=== PATIENT | female | born 1950 | race Caucasian/White ===

== ENCOUNTER 2021-01-02 07:45 | Day surgery (SDC) | payer MEDICARE ==
[2021-01-02 08:07] LABS: #Basophils 0.1 thou/uL (0.0-0.2); #Eosinphils 0.2 thou/uL (0.0-0.7); #Monocytes 0.4 thou/uL (0.11-0.59); #Neutrophils 3.1 thou/uL (1.40-6.50); %Eosinophils 4.1 % (0.0-10.0); %Monocytes 7.7 % (0.0-10.0); %Neutrophils 53.3 % (42.0-75.0); Hemoglobin 13.3 g/dL (12.0-16.0); Mean Corpuscular HGB CONC 33.9 g/dL (32.0-36.0); Mean Corpuscular Hemoglobin 30.1 pg (27.0-31.0); Mean Corpuscular Volume 88.8 fL (78.0-98.0); Mean Platelet Volume 7.7 fL (7.4-10.4); Platelet Count 293 thou/uL (130-400); RBC Distribution Width 12.5 % (11.5-14.5); Red Blood Cell (RBC) Count 4.43 mill/uL (4.20-5.40); White Blood Cell (WBC) Count 5.7 thou/uL (4.8-10.8)
[2021-01-02 08:19] LABS: Prothrombin Time 13.5 sec (12.0-14.7)
[2021-01-02 08:20] LABS: PTT 30.2 sec (22.9-36.1)
[2021-01-02 11:01] VITALS: BP 157/88; TEMP 97.7
== END 2021-01-02 11:30 | disposition home or self-care (01) ==
LOC: CT 07:45
PROVIDERS: ATTEND Internal Medicine Critical Care Medicine
PROC: 0BBF3ZX Excision of Right Lower Lung Lobe, Percutaneous Approach, Diagnostic (ICD-10-PCS; principal; 2021-01-02)
DX: C34.31 Malignant neoplasm of lower lobe, right bronchus or lung (principal); H40.9 Unspecified glaucoma; Z86.16 Personal history of COVID-19; Z79.899 Other long term (current) drug therapy; Z88.0 Allergy status to penicillin; Z88.1 Allergy status to other antibiotic agents
CPT/HCPCS: 32408; 71045; 77012; 85025; 85610; 85730; 88305; 88341; 88342

== ENCOUNTER 2021-01-23 10:19 | Outpatient (CLI) | payer MEDICARE | END 2021-01-23 10:20 | disposition home or self-care (01) | LOC: PET 10:19 | PROVIDERS: ATTEND Thoracic Surgery (Cardiothoracic Vascular Surgery) | DX: C34.31 Malignant neoplasm of lower lobe, right bronchus or lung (principal) | CPT/HCPCS: 78816; A9552 ==

== ENCOUNTER 2021-01-30 17:32 | Outpatient (CLI) | payer MEDICARE, OTHER ==
[2021-01-30 18:21] LABS: Hemoglobin 13.4 g/dL (12.0-15.5); Mean Corpuscular HGB CONC 33.3 g/dL (32.0-36.0); Mean Corpuscular Hemoglobin 29.6 pg (27.0-33.0); Mean Corpuscular Volume 88.9 fl (81.6-98.3); Mean Platelet Volume 10.3 fl (7.4-10.4); Platelet Count 294 10x3/uL (150-450); RBC Distribution Width 13.5 % (11.5-14.5); Red Blood Cell (RBC) Count 4.52 10x6/uL (3.90-5.03); White Blood Cell (WBC) Count 7.2 10x3/uL (3.5-10.5)
[2021-01-30 18:53] LABS: Anion Gap 14 mmol/L (10-20); BUN (Urea Nitrogen) 16 mg/dL (9.8-20.1); Calc. Creatinine Clearance 0 mL/min (70-130); Calcium 9.5 mg/dL (7.8-10.44); Carbon Dioxide 25 mmol/L (23-31); Chloride 106 mmol/L (98-107); Glucose 92 mg/dL (80-115); Sodium 141 mmol/L (136-145)
[2021-01-31 00:37] LABS: SARS-CoV-2 PCR by NAA Not Detected (NotDetected)
== END 2021-01-30 17:33 | disposition home or self-care (01) ==
LOC: LABBT 17:32
PROVIDERS: ATTEND Thoracic Surgery (Cardiothoracic Vascular Surgery)
DX: Z01.818 Encounter for other preprocedural examination (principal); Z20.822 Contact with and (suspected) exposure to COVID-19
CPT/HCPCS: 71046; 80048; 85027; U0003; U0005

== ENCOUNTER 2021-01-30 18:00 | Inpatient (IN) | payer MEDICARE ==
[2021-02-02 15:06] VITALS: BMI 35.5
[2021-02-04] MEDS ORDERED: Bupivacaine PF 0.5% 30 ML VIAL ONE (08:46)
[2021-02-04] MEDS ORDERED: EPINEPHrine 1 MG/ML AMP ONE (08:46)
[2021-02-04] MEDS ORDERED: Fentanyl 100 MCG/2 ML VIAL ONE ×2 (09:02→09:06)
[2021-02-04] MEDS ORDERED: Phenylephrine 10 MG/ML VIAL ONE (09:02)
[2021-02-04] MEDS ORDERED: Bupivacaine 0.25% HCL 30 ML VIAL ONE (09:02)
[2021-02-04] MEDS ORDERED: Midazolam HCl 2 mg/2 ml Vial ONE (09:06)
[2021-02-04] MEDS ORDERED: Acetaminophen 500 MG TAB PO PRN (09:42)
[2021-02-04] MEDS ORDERED: traMADol HCl 50 MG TAB PO PRN (09:45)
[2021-02-04] MEDS ORDERED: Zolpidem Tartrate 5 MG TAB PO PRN (09:45)
[2021-02-04] MEDS ORDERED: diphenhydrAMINE 50 MG/ML VIAL IM PRN (09:45)
[2021-02-04] MEDS ORDERED: Promethazine HCl 25 MG/ML VIAL IM PRN ×2 (09:45→12:19)
[2021-02-04] MEDS ORDERED: diphenhydrAMINE 25 MG CAP PO PRN (09:45)
[2021-02-04] MEDS ORDERED: HYDROcodone/Acetaminophen 5/325 mg Tablet PO PRN ×2 (09:45)
[2021-02-04] MEDS ORDERED: Hydrocerin (Eucerin) Cream 120 gm Jar TOP PRN (09:45)
[2021-02-04] MEDS ORDERED: Ondansetron PF 4 MG/2 ML Vial IVP PRN ×2 (09:45→17:00)
[2021-02-04] MEDS ORDERED: diphenhydrAMINE 50 MG/ML VIAL IVP PRN (09:45)
[2021-02-04] MEDS ORDERED: Promethazine HCl 25 MG SUPP PR PRN (09:45)
[2021-02-04] MEDS ORDERED: Naloxone HCl 0.4 mg/ml Vial IV PRN (09:45)
[2021-02-04] MEDS ORDERED: Bupivacaine 0.25% 10 ML VIAL EPIDURAL PRN (09:45)
[2021-02-04] MEDS ORDERED: Naloxone HCl 0.4 mg/ml Vial IVP PRN (09:45)
[2021-02-04] MEDS ORDERED: Levofloxacin 500 mg/D5W 100 ml Premix Bag ONE (10:25)
[2021-02-04] MEDS ORDERED: PROPOFOL 200 MG/20 ML VIAL ONE (10:37)
[2021-02-04] MEDS ORDERED: Lidocaine 1% PF 5 ML VIAL ONE (10:37)
[2021-02-04] MEDS ORDERED: Glycopyrrolate 0.2 MG/ML 5 ML SYRINGE ONE (10:37)
[2021-02-04] MEDS ORDERED: Lidocaine 1.5% w/Epi 1:200K 30 ML VIAL (Epid Use) ONE (10:37)
[2021-02-04] MEDS ORDERED: Ondansetron PF 4 MG/2 ML Vial ONE (10:37)
[2021-02-04] MEDS ORDERED: PHENYLEPHRINE-NS 100 MCG/ML 10 ML SYRINGE ONE (10:37)
[2021-02-04] MEDS ORDERED: Dexamethasone 20 MG/5 ML VIAL ONE (10:37)
[2021-02-04] MEDS ORDERED: Rocuronium Bromide 10 MG/ML (10ML VIAL) ONE (10:37)
[2021-02-04] MEDS ORDERED: Ketorolac Tromethamine 30 MG/ML VIAL ONE (10:37)
[2021-02-04] MEDS ORDERED: ePHEDrine 50 MG/ML VIAL ONE (10:37)
[2021-02-04] MEDS ORDERED: Ondansetron HCl/PF 4 MG/2 ML Vial IVP PRN (12:19)
[2021-02-04] MEDS ORDERED: Promethazine HCl 25 MG/ML VIAL IVPB PRN (12:19)
[2021-02-04] MEDS: Ketorolac Tromethamine 30 MG/ML VIAL IVP SCH ×3 (17:31→23:39)
[2021-02-04] MEDS: Sodium Chloride 0.9% 1,000 ML IV SCH (17:44)
[2021-02-04] MEDS: Enoxaparin Sodium 40 MG/0.4 ML SYRINGE SC SCH (20:22)
[2021-02-04] MEDS: Latanoprost 0.005% Ophth Soln 2.5 ml Bottle EA EYE SCH (20:25)
[2021-02-04] MEDS: Timolol 0.25% Ophth Soln 5 ml Bottle EA EYE SCH (20:26)
[2021-02-05] MEDS: fentaNYL Citrate/PF 500 MCG, Bupivacaine 10 ML in Sodium Chloride 0.9% 80 ML EPIDURAL SCH ×2 (00:37→12:53)
[2021-02-05] MEDS: Ketorolac Tromethamine 30 MG/ML VIAL IVP SCH ×3 (05:10→17:13)
[2021-02-05] MEDS: Sodium Chloride 0.9% 1,000 ML IV SCH (07:22)
[2021-02-05] MEDS: Timolol 0.25% Ophth Soln 5 ml Bottle EA EYE SCH ×2 (09:04→20:38)
[2021-02-05] MEDS: traMADol HCl 50 MG TAB PO PRN (18:29)
[2021-02-05] MEDS: Latanoprost 0.005% Ophth Soln 2.5 ml Bottle EA EYE SCH (20:38)
[2021-02-05] MEDS: Enoxaparin Sodium 40 MG/0.4 ML SYRINGE SC SCH (20:39)
[2021-02-06] MEDS: Ketorolac Tromethamine 30 MG/ML VIAL IVP SCH ×2 (01:00→05:46)
[2021-02-06] MEDS: fentaNYL Citrate/PF 500 MCG, Bupivacaine 10 ML in Sodium Chloride 0.9% 80 ML EPIDURAL SCH ×2 (02:06→14:00)
[2021-02-06] MEDS: Polyethylene Glycol 3350 17 GM Packet PO SCH (08:48)
[2021-02-06] MEDS: Timolol 0.25% Ophth Soln 5 ml Bottle EA EYE SCH ×2 (08:48→20:49)
[2021-02-06] MEDS ORDERED: Acetaminophen 325 MG TAB PO SCH (13:30)
[2021-02-06] MEDS: Acetaminophen 325 MG TAB PO SCH (17:39)
[2021-02-06] MEDS: traMADol HCl 50 MG TAB PO PRN (20:49)
[2021-02-06] MEDS: Latanoprost 0.005% Ophth Soln 2.5 ml Bottle EA EYE SCH (20:49)
[2021-02-07] MEDS: Enoxaparin Sodium 40 MG/0.4 ML SYRINGE SC SCH (00:26)
[2021-02-07] MEDS: Acetaminophen 325 MG TAB PO SCH ×2 (00:27→06:19)
[2021-02-07] MEDS: traMADol HCl 50 MG TAB PO PRN (05:04)
[2021-02-07 08:24] VITALS: BP 144/80; TEMP 97.9
[2021-02-07] MEDS: Timolol 0.25% Ophth Soln 5 ml Bottle EA EYE SCH (08:30)
[2021-02-07] MEDS: Polyethylene Glycol 3350 17 GM Packet PO SCH (08:30)
== END 2021-02-07 10:33 | disposition home or self-care (01) | DRG 168 ==
LOC: SURG A 02-04 07:24 → SURG B 02-04 16:54 → EDSTATUS 02-04 18:00
PROVIDERS: ADMIT Thoracic Surgery (Cardiothoracic Vascular Surgery); ATTEND Thoracic Surgery (Cardiothoracic Vascular Surgery)
PROC: 0BBN0ZX Excision of Right Pleura, Open Approach, Diagnostic (ICD-10-PCS; principal; 2021-02-04)
DX: C34.31 Malignant neoplasm of lower lobe, right bronchus or lung (principal); H40.9 Unspecified glaucoma; E66.3 Overweight; Z20.822 Contact with and (suspected) exposure to COVID-19; Z79.899 Other long term (current) drug therapy; Z82.49 Family history of ischemic heart disease and other diseases of the circulatory system; Z80.9 Family history of malignant neoplasm, unspecified; Z68.35 Body mass index [BMI] 35.0-35.9, adult; Z88.8 Allergy status to other drugs, medicaments and biological substances; Z90.710 Acquired absence of both cervix and uterus
CPT/HCPCS: 71045; 88305; 88331; J0171; J1100; J1650; J1885; J1956; J2001; J2250; J2370; J2405; J2704; J3010; J3490; J7050; S0020

== ENCOUNTER 2021-02-17 10:12 | Outpatient (CLI) | payer MEDICARE ==
[2021-02-17] MEDS ORDERED: Magnevist 469MG/ML 20 ML VIAL ONE (11:44)
== END 2021-02-17 10:13 | disposition home or self-care (01) ==
LOC: EKG 10:12
PROVIDERS: ATTEND Internal Medicine Hematology & Oncology
DX: Z51.11 Encounter for antineoplastic chemotherapy (principal); C34.31 Malignant neoplasm of lower lobe, right bronchus or lung; I08.3 Combined rheumatic disorders of mitral, aortic and tricuspid valves
CPT/HCPCS: 70553; 93005; 93010; 93306; A9579

== ENCOUNTER 2021-02-19 11:09 | Outpatient (CLI) | payer MEDICARE | END 2021-02-19 11:10 | disposition home or self-care (01) | LOC: BICRAD 11:09 | PROVIDERS: ATTEND Thoracic Surgery (Cardiothoracic Vascular Surgery) | DX: C34.31 Malignant neoplasm of lower lobe, right bronchus or lung (principal) | CPT/HCPCS: 71046 ==

== ENCOUNTER 2021-05-15 09:30 | Outpatient (CLI) | payer MEDICARE | END 2021-05-15 09:31 | disposition home or self-care (01) | LOC: PET 09:30 | PROVIDERS: ATTEND Internal Medicine Hematology & Oncology | DX: C34.31 Malignant neoplasm of lower lobe, right bronchus or lung (principal); I77.810 Thoracic aortic ectasia | CPT/HCPCS: 78815; A9552 ==

== ENCOUNTER 2021-08-11 11:00 | Outpatient (CLI) | payer MEDICARE | END 2021-08-11 11:01 | disposition home or self-care (01) | LOC: PET 11:00 | PROVIDERS: ATTEND Internal Medicine | DX: C34.31 Malignant neoplasm of lower lobe, right bronchus or lung (principal) | CPT/HCPCS: 78815; A9552 ==

== ENCOUNTER 2021-10-27 11:00 | Outpatient (CLI) | payer MEDICARE | END 2021-10-27 11:01 | disposition home or self-care (01) | LOC: PET 11:00 | PROVIDERS: ATTEND Internal Medicine Hematology & Oncology | DX: C34.31 Malignant neoplasm of lower lobe, right bronchus or lung (principal); R91.8 Other nonspecific abnormal finding of lung field | CPT/HCPCS: 78815; A9552 ==

== ENCOUNTER → 2022-03-19 | Outpatient (CLI) | payer MEDICARE | LOC: PET 10:15 | PROVIDERS: ATTEND Internal Medicine Hematology & Oncology | DX: C34.31 Malignant neoplasm of lower lobe, right bronchus or lung (principal); J18.1 Lobar pneumonia, unspecified organism | CPT/HCPCS: 78815; A9552 ==

== ENCOUNTER 2022-05-25 09:30 | Outpatient (CLI) | payer MEDICARE | END 2022-05-25 09:31 | disposition home or self-care (01) | LOC: PET 09:30 | PROVIDERS: ATTEND Internal Medicine Hematology & Oncology | DX: C34.31 Malignant neoplasm of lower lobe, right bronchus or lung (principal); J98.4 Other disorders of lung; R94.8 Abnormal results of function studies of other organs and systems | CPT/HCPCS: 78815; A9552 ==

== ENCOUNTER 2022-08-17 11:00 | Outpatient (CLI) | payer MEDICARE | END 2022-08-17 11:01 | disposition home or self-care (01) | LOC: PET 11:00 | PROVIDERS: ATTEND Internal Medicine Hematology & Oncology | DX: C34.31 Malignant neoplasm of lower lobe, right bronchus or lung (principal) | CPT/HCPCS: 78815; A9552 ==

== ENCOUNTER 2022-12-07 09:30 | Outpatient (CLI) | payer MEDICARE | END 2022-12-07 09:31 | disposition home or self-care (01) | LOC: PET 09:30 | PROVIDERS: ATTEND Internal Medicine Hematology & Oncology | DX: C34.31 Malignant neoplasm of lower lobe, right bronchus or lung (principal) | CPT/HCPCS: 78815; A9552 ==

== ENCOUNTER → 2023-03-29 | Outpatient (CLI) | payer MEDICARE | LOC: PET 11:00 | PROVIDERS: ATTEND Internal Medicine Hematology & Oncology | DX: C34.31 Malignant neoplasm of lower lobe, right bronchus or lung (principal); I77.819 Aortic ectasia, unspecified site; K57.30 Diverticulosis of large intestine without perforation or abscess without bleeding; Z85.118 Personal history of other malignant neoplasm of bronchus and lung | CPT/HCPCS: 78815; A9552 ==

== ENCOUNTER 2023-11-22 09:30 | Outpatient (CLI) | payer MEDICARE | END 2023-11-22 09:31 | disposition home or self-care (01) | LOC: PET 09:30 | PROVIDERS: ATTEND Internal Medicine Hematology & Oncology | DX: C34.31 Malignant neoplasm of lower lobe, right bronchus or lung (principal) | CPT/HCPCS: 78815; A9552 ==

== ENCOUNTER 2024-03-13 13:00 | Outpatient (CLI) | payer MEDICARE | END 2024-03-13 15:00 | disposition home or self-care (01) | LOC: PET 13:00 | PROVIDERS: ATTEND Internal Medicine Hematology & Oncology | DX: C34.31 Malignant neoplasm of lower lobe, right bronchus or lung (principal) | CPT/HCPCS: 78815; A9552 ==